=== PATIENT | female | born 1990 | race Caucasian/White ===

== ENCOUNTER 2017-09-09 09:55 | Emergency (ER) | payer BC ==
--- NOTE | 2017-09-09 10:26 | UC ---
Respiratory Complaint HPI - HPI Summary HPI Summary: 27 y/o female presents to the urgent care c/o productive cough for the past 2 weeks. Symptoms started with nasal congestion and sinus pain, pressure with yellowish nasal discharge. For the past 2 days symptoms are going down her chest with coughing at night at all times with a green phlegm. She has been taking alkazeltser OTC to alleviate cough. She has been having chills, but unsure of fever. Pt denies pain, SOB, chest pain, N/V/D or abdominal pain. - History of Current Complaint Stated Complaint: UPPER RESPIRATORY Time Seen by Provider: 09/09/17 10:04 Hx Obtained From: Patient Hx Last Menstrual Period: 02/28/16 Onset/Duration: Gradual Onset, Lasting Weeks - 2 weeks, Still Present, Worse Since - 2 days Timing: Intermittent Episodes Severity Initially: Moderate Severity Currently: Moderate Pain Intensity: 0 Pain Scale Used: 0-10 Numeric Character: Cough: Productive, Sputum Description: - yellowish Aggravating Factors: Recumbent Position Alleviating Factors: OTC Meds Associated Signs And Symptoms: Positive: URI, Nasal Congestion, Sinus Discomfort - Allergies/Home Medications Allergies/Adverse Reactions: Allergies Allergy/AdvReac Type Severity Reaction Status Date / Time Codeine Allergy Vomiting Verified 09/09/17 10:30 PMH/Surg Hx/FS Hx/Imm Hx Previously Healthy: Yes - Pt denies PMHX Other History Of: Negative For: HIV, Hepatitis B, Hepatitis C - Surgical History Surgical History: None Surgery Procedure, Year, and Place: tonsils and adenoids removed - Family History Known Family History: Positive: Cardiac Disease, Hypertension Family History: Hypothyrodism - Social History Occupation: Employed Full-time Lives: With Family Alcohol Use: Occasionally Substance Use Type: None Smoking Status (MU): Never Smoked Tobacco Review of Systems Constitutional: Negative, Chills Skin: Negative Eyes: Negative ENT: Nasal Discharge, Sinus Congestion, Sinus Pain/Tenderness Respiratory: Cough - productive with yellowish nasal discharge Cardiovascular: Negative Gastrointestinal: Negative Genitourinary: Negative Motor: Negative Neurovascular: Negative Musculoskeletal: Negative Neurological: Negative Psychological: Negative Is Patient Immunocompromised?: No All Other Systems Reviewed And Are Negative: Yes Physical Exam Triage Information Reviewed: Yes - Additional Comments Vital Signs Reviewed: Yes General: well developed, well nourished female sitting in the examining table w/ o any apparent distress Eyes: Positive: Conjunctiva Clear - PERRLA, EOMI, fundi grossly normal ENT: Positive: Normal ENT inspection, Hearing grossly normal, Pharynx normal, Nasal congestion - edematous and erythematous nasal mucosa, Nasal drainage - yellowish drainage, TMs normal. Negative: Tonsillar swelling, Tonsillar exudate Neck: Positive: Supple, Nontender, No Lymphadenopathy Respiratory: no orthopnea or dyspnea. Able to speak in full sentences, no retractions or accessory muscle use, no tripod position, stridor, or head bobbing. Positive breath sound. mild posterior upper lungs with mild rhonchi, no lung wheezes, or rales. Cardiovascular: Positive: RRR, No Murmur, Pulses Normal, Brisk Capillary Refill Abdomen Description: Positive: Nontender, No Organomegaly, Soft. Negative: CVA Tenderness (R), CVA Tenderness (L) Bowel Sounds: Positive: Present Musculoskeletal Exam: Normal Musculoskeletal: Positive: Strength Intact, ROM Intact, No Edema Neurological Exam: Normal Psychological Exam: Normal Skin Exam: Normal Respiratory Course/Dx - Course Course Of Treatment: 27 y/o female presents to the urgent care c/o productive cough for the past 2 weeks. Symptoms started with nasal congestion and sinus pain, pressure with yellowish nasal discharge. For the past 2 days symptoms are going down her chest with coughing at night at all times with a green phlegm. She has been taking alkazeltser OTC to alleviate cough. She has been having chills, but unsure of fever. Pt denies pain, SOB, chest pain, N/V/D or abdominal pain. Hx obtained. Pt with mild posterior B/l upper lungs with rhonchi. Pt with Acute bronchitis on examination. Pt Rx Z-mir PO. Pt advised to increase fluid intake and eat well. if not improvement or worsening of symptoms to return to the urgent care or f/u with PCP for further management. pt understood and agreed with plan of care. - Differential Dx/Diagnosis Differential Diagnosis/HQI/PQRI: Asthma, Bronchitis, Influenza, Laryngitis, Sinusitis Provider Diagnoses: 1- Acute bronchitis. 2- cough Discharge - Discharge Plan Condition: Stable Disposition: HOME Prescriptions: Azithromyxin MIR (NF) [Z-Mir (Zithromax) 250 mg tabs #6] 2 tab PO .TODAY, THEN 1 DAILY #6 tab Patient Education Materials: Acute Bronchitis (ED) Referrals: KINZA Boss [Primary Care Provider] - 2 Days Additional Instructions: 1-Please take full course of antibiotic to avoid resistance. 2-Continue taking the OTC cough medication to alleviate cough. Increase fluid intake, rest and eat well. 3- If symptoms do not improve or worsen or develop SOB with fever please go immediately to the ER further evaluation and treatment. 4- F/u with your PCP in 2-3 days for further management.
[2017-09-09 10:38] VITALS: BP 132/84
== END 2017-09-09 10:48 | disposition home or self-care (01) ==
LOC: UCCORT 09:55
DX: J20.9 Acute bronchitis, unspecified (principal); R05 Cough; Z88.5 Allergy status to narcotic agent
CPT/HCPCS: 99212; G0463

== ENCOUNTER 2019-09-23 12:47 | Inpatient (IN) | payer BC ==
[2019-09-23] MEDS ORDERED: Dinoprostone* 10 MG VAG.SUPP VAGINAL ONE (13:11)
[2019-09-23] MEDS ORDERED: Buffered Lidocaine 1% SYRIN* 1 ML/SYRINGE INTRADERM ONE (13:11)
[2019-09-23] MEDS ORDERED: Lactated Ringers 1000 ML Bag* 1,000 ML IV ONE (13:11)
--- NOTE | 2019-09-23 13:20 | HP ---
General Information - Reason for Visit mild preeclampsia, induction of labor, 37wks EGA - General Information Maternal Age: 29 Grav: 1 Para: 0 SAB: 0 IEA: 0 Estimated Due Date: 10/14/19 Determined By: Early Ultrasound Gestational Age in Weeks/Days: 37 weeks Maternal Blood Type and Rh: A Positive - Results this Serology/RPR Result: Non-Reactive Rubella Result: Non-Immune HBsAg Result: Negative HIV Result: Negative GBS Culture Result: Positive Past Medical History Pertinent Past Medical History: See Records - migraines, psoriasis Pertinent Past Surgical History: See Records - tonsils and adenoids 2002 Pertinent Family History: See Records - M: Grave's disease, CVD; MGM: CVD, HTN, high chol, ALS; F: CVD, HTN, high chol.; PGF: CVD - Antepartal Records Antepartal Records: Reviewed, Complicated by: - BMI 40, marginal previa (resolved), psoriasis, mild preeclampsia, GBS + Review of Systems Constitutional: Comfortable CV Complaint: No Respiratory: Shortness of Breath: No Gastrointestinal: No Nausea/Vomiting, Normal Bowel Movement Genitourinary: No Dysuria, No Bleeding, No Leaking Fluid Musculoskeletal: No Complaint, No Epigastric Pain Neurological: No Headache, No Visual Changes Movement: Normal Exam Allergies/Adverse Reactions: Allergies MS Codeine [Codeine] Allergy (Verified 09/09/17 10:30) Vomiting T:98.3, O:114, BP: 135/81 Lab Values - Entire Visit: Laboratory Tests 09/22/19 09/22/19 09/22/19 14:59 15:23 15:23 Plt Count 338 AST 9 L ALT 7 Ur Total Protein 24 Hr 351 H - Measurements Height: 5 ft 7 in Weight: 266 lb Body Mass Index (BMI): 41.6 Pre- Weight: 259 lb - Exam Breast: Breast Exam Deferred CVA: No CVA Tenderness Extremities: No Edema Heart: Normal Rhythm/Heart Sounds HEENT: No Significant Findings Lungs: Clear Bilaterally Rectal: Rectal Exam Deferred Reflexes: DTR 2+ Thyroid: No Thyromegaly - Abdominal Exam Abdomen Exam: Fundal Height Consistent with Dates - Ultrasound/Biophysical Profile Ultrasound Status: Not Done Targeted Exam Findings Estimated Weight: 7lbs 7oz Presenting Part: Vertex Membrane Status: Intact Bleeding/Discharge: None EFM Findings - External Monitor Findings Baseline Heart Rate: 150 External Monitor Findings: Accelerations Present, No Pattern of Variable or Late Decelerations, Variability Moderate, Baseline Stable Contractions: None Assessment/Plan - Assessment 29 y.o. , 37wks EGA, mild preeclampsia, Cat I NST, GBS +, induction of labor - Obstetrical Risk Factors Obstetrical Risk Factors: GBS Positive, PreEclampsia - Plan Plan: Admit - Anticipate Vaginal Delivery - Date/Time of Admission Date of Admission: 09/23/19 Time of Admission: 13:30
[2019-09-23 20:52] LABS: Urine Benzodiazepine Screen None Detected (None Detect); Urine Opiates Screen None Detected (None Detect)
[2019-09-23] MEDS ORDERED: hydrOXYzine HCL TAB* 50 MG PO ONE (21:58)
[2019-09-23] MEDS ORDERED: Morphine 10 MG/ML VIAL (1 ml) IM ONE (22:07)
[2019-09-23] MEDS ORDERED: Promethazine INJ(RESTRICTED)* 25 MG/ML 1 ML VIAL IM PRN (22:08)
[2019-09-24 09:23] LABS: ABS Eosinophils 0.1 10^3/ul (0-0.6); ABS Lymphocytes 1.8 10^3/ul (1.0-4.8); ABS Monocytes 0.5 10^3/ul (0-0.8); ABS Neutrophils 9.9 10^3/ul (1.5-7.7); Eosinophil % 0.9 %; Hematocrit 34 % (35-47); Hemoglobin 11.7 g/dL (12.0-16.0); Lymphocyte % 14.4 %; Mean Corpuscular HGB Conc 34 g/dL (31-36); Mean Corpuscular Hemoglobin 29 pg (27-31); Mean Corpuscular Volume 84 fL (80-97); Mean Platelet Volume 8.1 fL (7.4-10.4); Platelet Count 322 10^3/uL (150-450); Red Blood Count 4.05 10^6 /uL (3.70-4.87); Red Cell Distribution Width 14 % (10-15); White Blood Count 12.3 10^3/uL (3.5-10.8)
[2019-09-24 09:39] LABS: Albumin 3.8 g/dL (3.2-5.2); Albumin/Globulin Ratio 1.3 (1-3); BUN/Creatinine Ratio 10.2 (8-20); Calcium 9.1 mg/dL (8.6-10.3); EGFR African American 145.8 (>60); EGFR Non-African American 120.5 (>60); Globulin 2.9 g/dL (2-4); Potassium 3.7 mmol/L (3.5-5.0); Total Bilirubin 0.3 mg/dL (0.2-1.0); Total Protein 6.7 g/dL (6.4-8.9); Uric Acid 5.3 mg/dL (2.3-6.6)
--- NOTE | 2019-09-24 11:12 | PN ---
Progress Note - Progress Note Date of Service: 09/24/19 SOAP: Subjective: Pt reports contractions are stronger but still mild. Pt reports increased pressure. Objective: BP:120/78, FHR: 145bpm, + accels, -decels, moderate variability, ctx q 3-5min. cervical exam declined R:20, T:98.1 Assessment: 29 y.o. , 37w1d EGA, Cat I NST, mild preeclampsia, induction of labor Plan: 1) Con't current care 2) Reevaluate in 2hrs 3) Reviewed mgmt options and risks versus benefits and pt wants to wait until reevaluation at 2 to make a decision.
--- NOTE | 2019-09-24 13:51 | PN ---
Progress Note - Progress Note Date of Service: 09/24/19 SOAP: Subjective: Pt reports ctx have spaced out. Pt reports continued pressure. Pt denies GUNTER, epigastric pain, edema or vision changes. Pt alexis LOF, or vaginal bleeding. Objective: BP:132/87, P:105, R:20, T:97.9, FHR: 145bpm. + accels, -decels, moderate variability, ctx q 2-8 min. Cervix: 3/75/0 posterior Assessment: 29 y.o. , Cat I NST, mild preeclampsia, cervical ripening Plan: 1) Hydrotherapy, reevaluate in 45 minutes, if appropriate, misoprostol 25mcg p.o. 2) Reviewed options and R/B.
[2019-09-24] MEDS ORDERED: Misoprostol TAB* 100 MCG PO ONE (13:54)
[2019-09-24] MEDS ORDERED: Oxytocin in LR* 20 UNITS/1,000 ML BAG IVPB ONE (21:09)
--- NOTE | 2019-09-24 21:12 | PN ---
Progress Note - Progress Note Date of Service: 09/24/19 SOAP: Subjective: Pt reports she has been resting and ambulating alternately and contractions have not intensified. Pt desires pitocin augmentation. Objective: BP:131/70, P:101, FHR: 135, + accels, -decels, moderate variability, ctx irregular cervix: /0 Assessment: 29 y.o. , 37w1d EGA, mild preeclampsia, cat I NST, induction of labor Plan: 1) Reviewed options with patient and she elects to continue with pitocin low dose, reviewed R/B. 2) reevaluate in 3 hr or sooner PRN. 3) Cont discontinuing pitocin after 6 hour trial and therapeutic rest if no progress.
[2019-09-24] MEDS: Oxytocin in LR* 20 UNITS/1,000 ML BAG IVPB SCH (21:19)
[2019-09-25] MEDS ORDERED: Morphine 10 MG/ML VIAL (1 ml) IV ONE ×2 (03:14→21:24)
--- NOTE | 2019-09-25 12:53 | PN ---
Progress Note - Progress Note Date of Service: 09/25/19 SOAP: Subjective: Pt reports mild cramping, denies regular ctx, - LOF, -VB Objective: FHR: 150bpm, + accels, -decels, moderate variability BP:129/75 Assessment: 29 y.o. 37w2d EGA, cat I NST, mild PEC, induction of labor Plan: 1) Reviewed options 2) Low dose pitocin 3) Reevaluate in 2 hrs or sooner PRN
[2019-09-25] MEDS ORDERED: Promethazine INJ(RESTRICTED)* 25 MG/ML 1 ML VIAL IV PRN (21:25)
--- NOTE | 2019-09-25 21:32 | PN ---
Progress Note - Progress Note Date of Service: 09/25/19 SOAP: Subjective: Pt reports mild contractions, denies LOF, denies vaginal bleeding, reports mucousy and brown discharge. Pt c/o GUNTER, denies epigastric pain, or vision changes. Pt states she is tired and desires rest overnight and to resume induction in AM. Objective: BP:138/74, T:97.9, FHR:135bpm. +accels, -decels, moderate variability. Cervix: 3-4/75/-1. Assessment: 29 y.o. 37w2d EGA, mild preeclampsia, induction of labor Plan: 1) Pitocin discontinued 2) Cook's catheter placed 60cc/40cc 3) Therapeutic rest 4) Reevaluate in AM
[2019-09-26] MEDS: Lactated Ringers 1000 ML Bag* 1,000 ML IV SCH ×2 (11:05→18:44)
[2019-09-26] MEDS: Penicillin G Potassium IV* 5,000,000 UNITS in NS 0.9% 100 ML* 100 ML IVPB ONE (11:06)
--- NOTE | 2019-09-26 11:24 | PN ---
Progress Note - Progress Note Date of Service: 09/26/19 SOAP: Subjective: Pt report strong cramping with Cook's catheter overnight but states she slept well. Pt has been doing nipple stimulation with some contrations. Pt denies GUNTER , epigastric pain or vision changes. Objective: Cervix: 5/75/-1 FHR: 140bpm, + accels, -decels, moderate variability, irregular mild ctx. BP: 127/78 Assessment: 29 y.o. 37w3d EGA, cat I NST, mild preeclampsia, induction of labor GBS + Plan: 1) Antibiotic prophylaxis 2) Con't nipple stimulation 3) Reevaluate in 3 hrs, consider pitocin augmentation.
[2019-09-26] MEDS: Oxytocin in LR* 20 UNITS/1,000 ML BAG IVPB SCH (12:53)
[2019-09-26] MEDS: Penicillin G Potassium IV* 3,000,000 UNITS in NS 0.9% 100 ML* 100 ML IVPB SCH ×2 (15:00→18:49)
--- NOTE | 2019-09-26 16:13 | PN ---
Progress Note - Progress Note Date of Service: 09/26/19 SOAP: Subjective: Pt reports continued leaking of clear fluid. Pt reports contractions as "hot and heavy" and every 5 minutes approx. Denies GUNTER, denies epigastric pain. Objective: FHR: 140bpm, + accels, -decels, moderate variability, ctx q 2-4min Pitocin at 14mu 6/80/-1 BP: 135/88, T:98.8, P:86 Assessment: 29 y.o. , 37w3d EGA, Cat I NST, early labor Plan: 1) Position changes for descent 2) Therapeutic support 3) Continue pitocin
[2019-09-26] MEDS ORDERED: OBEPIDURAL* 250 ML EPIDURAL ONE (18:26)
[2019-09-26] MEDS ORDERED: Lidocaine 1% MPF ** 5 ML VIAL ONE (19:06)
[2019-09-26] MEDS ORDERED: Sodium Chloride 0.9%* 10 ML ONE (19:11)
[2019-09-26] MEDS ORDERED: Sodium Citrate/Citric Acid* 15 ML UDC PO PRN (19:27)
[2019-09-26] MEDS ORDERED: Famotidine TAB* 20 MG PO PRN (19:27)
[2019-09-26] MEDS ORDERED: Phenylephrine 40 MCG/ML SYRINGE IV PUSH PRN ×2 (19:27)
[2019-09-26] MEDS ORDERED: Lactated Ringers 1000 ML Bag* 1,000 ML IV ONE (19:27)
[2019-09-26] MEDS ORDERED: Lactated Ringers 1000 ML Bag* 1,000 ML IV SCH ×2 (20:00→21:00)
[2019-09-26] MEDS ORDERED: OBEPIDURAL* 250 ML EPIDURAL SCH (20:00)
[2019-09-26] MEDS ORDERED: Dibucaine 1% 28.35 GM TUBE PR PRN (20:15)
[2019-09-26] MEDS ORDERED: Glycerin ADULT SUPP PR PRN (20:15)
[2019-09-26] MEDS ORDERED: Witch Hazel PAD* JAR TOPICAL PRN (20:15)
--- NOTE | 2019-09-26 20:19 | PROCNOTE ---
[facility] OB: Delivery Note - Delivery A Date of : 09/26/19 Time of : 19:53 Sex: Male Score 1 Minute: 8 Score 5 Minutes: 9 Gestational Age in Weeks and Days at Delivery: 37 Weeks and 3 Days Delivery Method: Spontaneous Vaginal Labor: Induced Amniotic Fluid: Clear Estimated Blood Loss: 150 Anesthesia/Analgesia: CEI for Labor, Nitrous-Labor Delivered By: Nella Noguera - Nursery Level of Nursery: Regular/Bedside - Perineum Perineal Injury: Perineal Laceration, 1st Degree Perineal Repair: By Delivering Practioner - Events Delivery Events of Note: Pitocin During Labor Delivery Events of Note Comment: left nuchal arm
[2019-09-26] MEDS ORDERED: Oxytocin in LR* 20 UNITS/1,000 ML BAG IVPB SCH (21:00)
[2019-09-27] MEDS: Ibuprofen TAB* 600 MG PO PRN ×4 (00:20→21:54)
[2019-09-27] MEDS: Acetaminophen TAB* 325 MG PO PRN ×2 (04:03→11:12)
[2019-09-27] MEDS ORDERED: Lidocaine 1% INJ* 10 MG/ML 30 ML SDV ONE (04:13)
[2019-09-27 07:40] LABS: ABS Basophils 0.1 10^3/ul (0-0.2); ABS Eosinophils 0.1 10^3/ul (0-0.6); ABS Lymphocytes 2.7 10^3/ul (1.0-4.8); ABS Monocytes 0.9 10^3/ul (0-0.8); ABS Neutrophils 12.3 10^3/ul (1.5-7.7); Eosinophil % 0.4 %; Hematocrit 27 % (35-47); Hemoglobin 9.2 g/dL (12.0-16.0); Lymphocyte % 16.8 %; Mean Corpuscular HGB Conc 35 g/dL (31-36); Mean Corpuscular Hemoglobin 29 pg (27-31); Mean Corpuscular Volume 83 fL (80-97); Mean Platelet Volume 8.1 fL (7.4-10.4); Platelet Count 272 10^3/uL (150-450); Red Cell Distribution Width 14 % (10-15)
[2019-09-27] MEDS: Docusate CAP* 100 MG PO SCH ×3 (08:40→21:54)
[2019-09-27] MEDS: Ferrous Gluconate TAB* 324 MG TAB PO SCH ×2 (08:45→21:54)
[2019-09-27] MEDS: Simethicone TAB* 80 MG TAB.CHEW PO SCH ×2 (10:21→16:35)
--- NOTE | 2019-09-27 16:57 | PTEDU ---
Patient Name: MARSHALL DURAN MARSHALL DURAN selected video: Follow Me Mum: The [employer] to Successful to view on at 4:56:46 PM [id number]
[2019-09-28 08:11] VITALS: BP 137/72
[2019-09-28] MEDS: Penicillin G Potassium IV* 5,000,000 UNITS in NS 0.9% 100 ML* 100 ML IVPB ONE (08:19)
[2019-09-28] MEDS: Docusate CAP* 100 MG PO SCH ×3 (08:20→14:52)
[2019-09-28] MEDS: Simethicone TAB* 80 MG TAB.CHEW PO SCH (08:21)
[2019-09-28] MEDS: Penicillin G Potassium IV* 3,000,000 UNITS in NS 0.9% 100 ML* 100 ML IVPB SCH ×2 (08:21→08:22)
[2019-09-28] MEDS: Ferrous Gluconate TAB* 324 MG TAB PO SCH (08:32)
[2019-09-28] MEDS: Ibuprofen TAB* 600 MG PO PRN (11:07)
[2019-09-28] MEDS ORDERED: Measles, Mumps,Rubella VACC* 0.5 ML/VIAL SUBCUT ONE (13:31)
== END 2019-09-28 18:05 | disposition home or self-care (01) | DRG 560 ==
LOC: MCHOBOUT 12:47 → MCHOB 13:25
PROVIDERS: ADMIT Midwife; ATTEND Midwife
PROC: 10E0XZZ Delivery of Products of Conception, External Approach (ICD-10-PCS; principal; 2019-09-26)
PROC: 4A1HXCZ Monitoring of Products of Conception, Cardiac Rate, External Approach (ICD-10-PCS; 2019-09-26)
PROC: 0HQ9XZZ Repair Perineum Skin, External Approach (ICD-10-PCS; 2019-09-26)
PROC: 3E0P7VZ Introduction of Hormone into Female Reproductive, Via Natural or Artificial Opening (ICD-10-PCS; 2019-09-26)
PROC: 10907ZC Drainage of Amniotic Fluid, Therapeutic from Products of Conception, Via Natural or Artificial Opening (ICD-10-PCS; 2019-09-26)
PROC: 3E033VJ Introduction of Other Hormone into Peripheral Vein, Percutaneous Approach (ICD-10-PCS; 2019-09-26)
PROC: 0U7C7ZZ Dilation of Cervix, Via Natural or Artificial Opening (ICD-10-PCS; 2019-09-26)
DX: O99.824 Streptococcus B carrier state complicating childbirth (principal); Z37.0 Single live birth; O14.04 Mild to moderate pre-eclampsia, complicating childbirth; L40.9 Psoriasis, unspecified; O99.72 Diseases of the skin and subcutaneous tissue complicating childbirth; O70.0 First degree perineal laceration during delivery; O32.8XX0 Maternal care for other malpresentation of fetus, not applicable or unspecified; O99.214 Obesity complicating childbirth; O90.81 Anemia of the puerperium; Z3A.37 37 weeks gestation of pregnancy; Z88.5 Allergy status to narcotic agent; Z28.21 Immunization not carried out because of patient refusal
CPT/HCPCS: 36415; 80053; 80307; 84550; 85025; 86850; 86900; 86901; 90707; A9270-GY; G0480; J2270; J2540; J2550; S0191